=== PATIENT | female | born 1990 | race Caucasian/White ===

== ENCOUNTER 2017-06-18 17:59 | Inpatient (IN) | payer SELFPAY ==
[2017-06-18 18:38] LABS: PH,URINE 5.5 (4.5-8); URINE APPEARANCE Cloudy; URINE BILIRUBIN Negative (NEGATIVE); URINE GLUCOSE (UA) Negative (NEGATIVE); URINE KETONE Negative (NEGATIVE); URINE NITRITE Positive (NEGATIVE); URINE UROBILINOGEN 0.2 (0.2-1.0)
[2017-06-18 18:40] LABS: URINE BLOOD 3+ (NEGATIVE); URINE COLOR YELLOW; URINE LEUK ESTERASE 2+ (NEGATIVE); URINE PROTEIN 1+ (NEGATIVE)
[2017-06-18] MEDS ORDERED: SODIUM CHLORIDE 1,000 ML IV STA (18:51)
[2017-06-18] MEDS ORDERED: KETOROLAC TROMETHAMINE 30 MG/1 ML VIAL IVPUSH ONE (18:52)
--- NOTE | 2017-06-18 18:54 | PDOC ---
History of Present Illness - General History Source: Patient (The patient is a 26 year old female, with a significant past medical history of kidney stones, bladder infection, who presents to the emergency department via EMS with, sudden onset of left flank pain upon waking up this morning approx. 8 hours ago. The patient reports the left flank pain feels like a squeezing pain rated 7.5/10 and radiates around to the left side of her abdomen. The patient reports associated dizziness and one episode of nausea with emesis (non bloody, non bilious) this morning. The patient reports her LMP was approx. 2 months ago which she states is normal and denies any chance of . She denies any recent fever, chills, headache or dizziness. She denies any recent constipation or diarrhea. She denies any recent dysuria, frequency, urgency or hematuria. She denies any recent chest pain or shortness of breath. ) Exam Limitations: No Limitations - History of Present Illness Timing/Duration: 4-6 hours <Babar Gordillo - Last Filed: 06/18/17 19:05> <Jimmie Alberto - Last Filed: 06/19/17 09:42> - General Chief Complaint: Back Pain Stated Complaint: BACK PAIN Time Seen by Provider: 06/18/17 18:23 Past History <Babar Gordillo - Last Filed: 06/18/17 19:05> - Past Medical History COPD: No GI Disorders: Yes (KIDDNEY INFECTION) - Suicide/Smoking/Psychosocial Hx Smoking History: Never smoked Have you smoked in the past 12 months: No Information on smoking cessation initiated: No Hx Alcohol Use: No Drug/Substance Use Hx: No Substance Use Type: None <Jimmie Alberto - Last Filed: 06/19/17 09:42> - Past Medical History Allergies/Adverse Reactions: Allergies Allergy/AdvReac Type Severity Reaction Status Date / Time No Known Allergies Allergy Verified 06/18/17 18:21 Home Medications: Ambulatory Orders Ibuprofen 400 mg PO PRN PRN 06/18/17 Review of Systems - Review of Systems Constitutional: No: Chills, Diaphoresis, Fever, Weakness HEENTM: No: Blurred Vision, Double Vision, Difficulty Swallowing Respiratory: No: Cough, Shortness of Breath Cardiac (ROS): No: Chest Pain, Edema, Lightheadedness, Palpitations, Syncope ABD/GI: No: Abdominal Distended, Diarrhea, Nausea, Vomiting : Yes: Flank Pain (+Left flank pain. ). No: Burning, Dysuria, Frequency, Hematuria Musculoskeletal: No: Joint Pain, Muscle Pain Integumentary: No: Lesions, Rash Neurological: No: Headache, Numbness, Paresthesia, Dizziness Psychiatric: No: Anxiety, Depression Endocrine: No: Intolerance to Cold, Intolerance to Heat, Unexplained Weight Gain , Unexplained Weight Loss Hematologic/Lymphatic: No: Easy Bleeding, Easy Bruising <Babar Gordillo - Last Filed: 06/18/17 19:05> *Physical Exam - Vital Signs Last Vital Signs Temp Pulse Resp BP Pulse Ox 99.7 F H 86 17 107/60 96 06/18/17 18:00 06/18/17 18:00 06/18/17 18:00 06/18/17 18:00 06/18/17 18:00 - Physical Exam General Appearance: Yes: Appropriately Dressed. No: Apparent Distress HEENT: positive: EOMI, BERTRAND, Normal ENT Inspection, Normal Voice, Symmetrical, TMs Normal, Pharynx Normal Neck: positive: Trachea midline, Supple. negative: Tender Respiratory/Chest: positive: Lungs Clear, Normal Breath Sounds. negative: Respiratory Distress, Accessory Muscle Use, Crackles, Rales, Rhonchi, Wheezing Cardiovascular: positive: Regular Rhythm, Regular Rate, S1, S2. negative: Edema , JVD, Murmur Gastrointestinal/Abdominal: positive: Normal Bowel Sounds, Soft, Tenderness (+ LUQ tenderness. ). negative: Distended, Guarding, Rebound Musculoskeletal: positive: Normal Inspection, CVA Tenderness (L). negative: Vertebral Tenderness Extremity: positive: Normal Inspection, Normal Range of Motion. 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, Fully Oriented, Alert, Normal Mood/ Affect, Normal Response, Motor Strength 5/5 <Babar Gordillo - Last Filed: 06/18/17 19:05> - Vital Signs Last Vital Signs Temp Pulse Resp BP Pulse Ox 99.7 F H 86 17 107/60 96 06/18/17 18:00 06/18/17 18:00 06/18/17 18:00 06/18/17 18:00 06/18/17 18:00 <Jimmie Alberto - Last Filed: 06/19/17 09:42> ED Treatment Course - ADDITIONAL ORDERS Additional order review: Laboratory Results 06/18/17 18:33 Urine Color Yellow Urine Appearance Cloudy Urine pH 5.5 Ur Specific [place] 1.025 Urine Protein 1+ H Urine Glucose (UA) Negative Urine Ketones Negative Urine Blood 3+ H Urine Nitrite Positive Urine Bilirubin Negative Urine Urobilinogen 0.2 Ur Leukocyte Esterase 2+ H <Babar Gordillo - Last Filed: 06/18/17 19:05> - LABORATORY CBC & Chemistry Diagram: 06/19/17 07:10 06/19/17 07:10 - ADDITIONAL ORDERS Additional order review: Laboratory Results 06/18/17 18:33 Urine Color Yellow Urine Appearance Cloudy Urine pH 5.5 Ur Specific [place] 1.025 Urine Protein 1+ H Urine Glucose (UA) Negative Urine Ketones Negative Urine Blood 3+ H Urine Nitrite Positive Urine Bilirubin Negative Urine Urobilinogen 0.2 Ur Leukocyte Esterase 2+ H <Jimmie Alberto S - Last Filed: 06/19/17 09:42> Medical Decision Making - Medical Decision Making Endorsed to Dr Cho at shift change The working diagnosis : nephrolithyasis, pyelonephritis 06/18/17 19:02 06/19/17 09:41 <Jimmie Alberto - Last Filed: 06/19/17 09:42> *DC/Admit/Observation/Transfer - Attestations Scribe Attestion: 06/18/17 19:00 Documentation prepared by Babar Gordillo, acting as medical device engineer for Jimmie Alberto MD. <Babar Gordillo - Last Filed: 06/18/17 19:05> <Jimmie Alberto - Last Filed: 06/19/17 09:42> Diagnosis at time of Disposition: Kidney stone on left side, UTI (urinary tract infection)
[2017-06-18 19:06] LABS: URINE BACTERIA MANY /hpf (NEGATIVE); URINE WBC >100 (0-5)
[2017-06-18] MEDS ORDERED: KETOROLAC TROMETHAMINE 30 MG/1 ML VIAL ONE (19:06)
[2017-06-18 19:31] LABS: HEMOGLOBIN 12.4 GM/dl (10.7-15.3); MCH 29.9 pg (25.7-33.7); MCHC 34.5 g/dl (32.0-36.0); MEAN CELL VOLUME 86.7 fl (80-96); MEAN PLT VOLUME 9.5 fl (7.5-11.1); PLATELET COUNT 204 K/MM3 (134-434); RBC 4.15 M/mm3 (3.60-5.2); RDW 12.5 % (11.6-15.6); WHITE BLOOD COUNT 16.7 K/mm3 (4.0-10.8)
--- NOTE | 2017-06-18 20:01 | PDOC ---
*Physical Exam - Vital Signs Last Vital Signs Temp Pulse Resp BP Pulse Ox 99.7 F H 86 17 107/60 96 06/18/17 18:00 06/18/17 18:00 06/18/17 18:00 06/18/17 18:00 06/18/17 18:00 ED Treatment Course - LABORATORY CBC & Chemistry Diagram: 06/18/17 19:18 06/18/17 19:18 - ADDITIONAL ORDERS Additional order review: Laboratory Results 06/18/17 06/18/17 19:00 18:33 Urine Color Yellow Urine Appearance Cloudy Urine pH 5.5 Ur Specific [place] 1.025 Urine Protein 1+ H Urine Glucose (UA) Negative Urine Ketones Negative Urine Blood 3+ H Urine Nitrite Positive Urine Bilirubin Negative Urine Urobilinogen 0.2 Ur Leukocyte Esterase 2+ H Urine RBC 10-20 Urine WBC >100 Urine Bacteria Many Urine HCG, Qual Negative 06/18/17 19:18 RBC 4.15 MCV 86.7 MCHC 34.5 RDW 12.5 MPV 9.5 Neutrophils % No Result Required. Lymphocytes % No Result Required. - Medications Given in the ED: ED Medications Discontinued Medications Generic Name Dose Route Start Last Admin Trade Name Freq PRN Reason Stop Dose Admin Sodium Chloride 1,000 mls @ 1,000 mls/hr 06/18/17 18:51 06/18/17 19:04 Normal Saline - IV 06/18/17 19:50 1,000 mls/hr ASDIR STA Administration Ketorolac Tromethamine 30 mg 06/18/17 18:52 06/18/17 19:05 Toradol Injection - IVPUSH 06/18/17 18:53 30 mg ONCE ONE Administration Medical Decision Making - Medical Decision Making 06/18/17 21:28 Care of this patient received from Workup reveals a 4 mm calculus at the left UPJ with mild hydronephrosis. White count is elevated at 16,000 and urinalysis consistent with UTI. Clinical presentation suggests pyelonephritis with obstructing calculus. Patient states that she was admitted to the hospital in [place] last year for similar clinical presentation. Zosyn 3.375 g IV administered. Patient does not have a physician in this area; [facility] hospitalist service will be contacted for admission. Case discussed with Dr. Ray: Patient will be admitted to [facility] hospitalist service here at [facility]. *DC/Admit/Observation/Transfer Diagnosis at time of Disposition: Kidney stone on left side UTI (urinary tract infection) Qualifiers: Urinary tract infection type: acute pyelonephritis Qualified Code(s): N10 - Acute pyelonephritis - Discharge Dispostion Admit: Yes - Referrals - Patient Instructions - Post Discharge Activity
[2017-06-18 20:04] LABS: ALBUMIN 4.2 g/dl (3.5-5.0); ALK PHOS 81 U/L (32-92); ANION GAP 6 (8-16); BILIRUBIN,TOTAL 0.5 mg/dl (0.2-1.0); BLOOD UREA NITROGEN 12 mg/dl (7-18); CALCIUM 9.2 mg/dl (8.4-10.2); CHLORIDE 105 mmol/L (98-107); CO2 19 mmol/L (22-28); CREATININE 0.9 mg/dl (0.6-1.3); GLUCOSE,RANDOM 116 mg/dl (74-106); POTASSIUM 4.4 mmol/L (3.5-5.1); SGOT/AST 19 U/L (10-42); SGPT/ALT 25 U/L (10-40); SODIUM 130 mmol/L (136-145); TOT PROT 7.8 g/dl (6.4-8.3)
[2017-06-18 20:29] LABS: PLATELET ESTIMATE ADEQUATE
[2017-06-18] MEDS ORDERED: PIPERACILLIN/TAZOB 3.375 GM/50 ML PRE-DOCKED IVPB ONE (21:11)
[2017-06-18] MEDS ORDERED: PIPERACILLIN/TAZOBACTAM 3.375 GM VIAL IVPB ONE (21:22)
--- NOTE | 2017-06-18 21:48 | HP ---
CHIEF COMPLAINT: Left Flank Pain PCP: HISTORY OF PRESENT ILLNESS: This is a 26 y/o young woman with a PMHx of Renal Stones, Bladder Infection. Who presents to the ED with L-flank pain, LLQ pain and dysuria x 1-2 days. Patient reports having back pain and taking Tylenol without relief. Patient reports having subjective fevers and chills at home. She reports having dysuria that started tonight in the ED. Patient denies cough, WALTER, dizziness, CP , palpitations, N/V/D, constipation. ER course was notable for: (1) CTAP- 4mm Calculus left UPJ with mild hydronephrosis (2) WBC 16.7 (3) UA- +Nitrates, +3 Blood, 100 WBC, Recent Travel: None PAST MEDICAL HISTORY: see HPI PAST SURGICAL HISTORY: None Social History: Smoking: Never Alcohol: Seldom Drugs: None Family History: Father:Liver Ca Grandmother: DM Grandfather: Cardiac Allergies No Known Allergies Allergy (Verified 06/18/17 18:21) HOME MEDICATIONS: Home Medications Medication Instructions Recorded Ibuprofen 400 mg PO PRN PRN 06/18/17 REVIEW OF SYSTEMS CONSTITUTIONAL: fever, chills Absent: diaphoresis, generalized weakness, malaise, loss of appetite, weight change HEENT: Absent: rhinorrhea, nasal congestion, throat pain, throat swelling, difficulty swallowing, mouth swelling, ear pain, eye pain, visual changes CARDIOVASCULAR: Absent: chest pain, syncope, palpitations, irregular heart rate, lightheadedness , peripheral edema RESPIRATORY: Absent: cough, shortness of breath, dyspnea with exertion, orthopnea, wheezing, stridor, hemoptysis GASTROINTESTINAL: Absent: abdominal pain, abdominal distension, nausea, vomiting, diarrhea, constipation, melena, hematochezia GENITOURINARY: flank pain, dysuria, hematuria Absent: frequency, urgency, hesitancy, genital pain MUSCULOSKELETAL: Absent: myalgia, arthralgia, joint swelling, back pain, neck pain SKIN: Absent: rash, itching, pallor HEMATOLOGIC/IMMUNOLOGIC: Absent: easy bleeding, easy bruising, lymphadenopathy, frequent infections ENDOCRINE: Absent: unexplained weight gain, unexplained weight loss, heat intolerance, cold intolerance NEUROLOGIC: Absent: headache, focal weakness or paresthesias, dizziness, unsteady gait, seizure, mental status changes, bladder or bowel incontinence PSYCHIATRIC: Absent: anxiety, depression, suicidal or homicidal ideation, hallucinations. PHYSICAL EXAMINATION Vital Signs - 24 hr 06/18/17 18:00 Temperature 99.7 F H Pulse Rate 86 Respiratory 17 Rate Blood Pressure 107/60 O2 Sat by Pulse 96 Oximetry (%) GENERAL: Awake, alert, and fully oriented, in no acute distress. HEAD: Normal with no signs of trauma. EYES: Pupils equal, round and reactive to light, extraocular movements intact, sclera anicteric, conjunctiva clear. No lid lag. EARS, NOSE, THROAT: Ears normal, nares patent, oropharynx clear without exudates. Dry mucous membranes. NECK: Normal range of motion, supple without lymphadenopathy, JVD, or masses. LUNGS: Breath sounds equal, clear to auscultation bilaterally. No wheezes, and no crackles. No accessory muscle use. HEART: Regular rate and rhythm, normal S1 and S2 without murmur, rub or gallop. ABDOMEN: Soft, LLQ tenderness, not distended, normoactive bowel sounds, no guarding, no rebound, no masses. No hepatomegaly or splenomegaly. MUSCULOSKELETAL: Normal range of motion at all joints. No bony deformities or tenderness. + L CVA tenderness. UPPER EXTREMITIES: 2+ pulses, warm, well-perfused. No cyanosis. No clubbing. No peripheral edema. LOWER EXTREMITIES: 2+ pulses, warm, well-perfused. No calf tenderness. No peripheral edema. NEUROLOGICAL: Cranial nerves II-XII intact. Normal speech. Gait not observed. PSYCHIATRIC: Cooperative. Good eye contact. Appropriate mood and affect. SKIN: Warm, dry, normal turgor, no rashes or lesions noted, normal capillary refill. Laboratory Results - last 24 hr 06/18/17 06/18/17 06/18/17 18:33 19:00 19:18 WBC 16.7 H RBC 4.15 Hgb 12.4 Hct 36.0 MCV 86.7 MCH 29.9 MCHC 34.5 RDW 12.5 Plt Count 204 MPV 9.5 Neutrophils % No Result Required. Neutrophils % (Manual) 84.0 H Band Neutrophils % 14.0 H Lymphocytes % No Result Required. Lymphocytes % (Manual) 2.0 L Platelet Estimate Adequate Sodium Potassium Chloride Carbon Dioxide Anion Gap BUN Creatinine Creat Clearance w eGFR Random Glucose Lactic Acid Calcium Total Bilirubin AST ALT Alkaline Phosphatase Total Protein Albumin Urine Color Yellow Urine Appearance Cloudy Urine pH 5.5 Ur Specific [place] 1.025 Urine Protein 1+ H Urine Glucose (UA) Negative Urine Ketones Negative Urine Blood 3+ H Urine Nitrite Positive Urine Bilirubin Negative Urine Urobilinogen 0.2 Ur Leukocyte Esterase 2+ H Urine RBC 10-20 Urine WBC >100 Urine Bacteria Many Urine HCG, Qual Negative 06/18/17 06/18/17 19:18 19:18 WBC RBC Hgb Hct MCV MCH MCHC RDW Plt Count MPV Neutrophils % Neutrophils % (Manual) Band Neutrophils % Lymphocytes % Lymphocytes % (Manual) Platelet Estimate Sodium 130 L Potassium 4.4 Chloride 105 Carbon Dioxide 19 L Anion Gap 6 L BUN 12 Creatinine 0.9 Creat Clearance w eGFR > 60 Random Glucose 116 H Lactic Acid 1.2 Calcium 9.2 Total Bilirubin 0.5 AST 19 ALT 25 Alkaline Phosphatase 81 Total Protein 7.8 Albumin 4.2 Urine Color Urine Appearance Urine pH Ur Specific [place] Urine Protein Urine Glucose (UA) Urine Ketones Urine Blood Urine Nitrite Urine Bilirubin Urine Urobilinogen Ur Leukocyte Esterase Urine RBC Urine WBC Urine Bacteria Urine HCG, Qual ASSESSMENT/PLAN: This is a 26 y/o young woman with a PMHx of: Renal Calculi, Bladder Infections. Admitted to [facility] for Pyelonephritis, UTI. Plan: 1. : Pyelonephritis, UTI - Blood Cultures-pending - Urine Cultures-pending - UA- +nitrates, +2 leukocyte esterase, + >100WBC, +3 blood -+Leukocytosis, +Neutrophilia - Zosyn given in ED, will continue - Appreciate ID Consult - Appreciate Urology Consult - Monitor CBC, BMP - Toradol prn - IVF 2. F/E/N - NS@125ml/hr - Replete lytes prn - Clear Diet 3. Hyponatremia - Likely secondary to dehydration - NS bolus given in ED - Continue IVF - BMP in am 4. DVT Prophylaxis - OOB - SCDs Code Status: Full Code Dispo: Requires Inpatient Care Problem List - Problem (1) Pyelonephritis Code(s): N12 - TUBULO-INTERSTITIAL NEPHRITIS, NOT SPCF ACUTE OR CHRONIC (2) Kidney stone on left side Code(s): N20.0 - CALCULUS OF KIDNEY (3) UTI (urinary tract infection) Code(s): N39.0 - URINARY TRACT INFECTION, SITE NOT SPECIFIED Qualifiers: Urinary tract infection type: acute pyelonephritis Qualified Code(s): N10 - Acute pyelonephritis (4) DVT prophylaxis Code(s): [id number] - Visit type - Emergency Visit Emergency Visit: Yes ED Registration Date: 06/18/17 Care time: The patient presented to the Emergency Department on the above date and was hospitalized for further evaluation of their emergent condition. - New Patient This patient is new to me today: Yes Date on this admission: 06/18/17 - Critical Care Critical Care patient: No Hospitalist Screening - Colonoscopy Questionnaire Colonoscopy Questionnaire: Colonoscopy Questionnaire - Patient: 50 - 75 years old and never had a screening colonoscopy: No History of colon or rectal polyps, or CA: No History of IBD, Crohn's disease or UC: No History of abdominal radiation therapy as a child: No - Relative: 1 with colon or rectal CA, or polyps at age 60 or younger: No Colon or rectal CA diagnosed at age 45 or younger: No Multiple relatives with colon or rectal CA: No - Outcome: Screening Result: Negative Screen
[2017-06-18 22:43] VITALS: BMI 30.4
[2017-06-18] MEDS: KETOROLAC TROMETHAMINE 30 MG/1 ML VIAL IVPUSH PRN (22:50)
[2017-06-18] MEDS: SODIUM CHLORIDE 1,000 ML IV SCH (22:50)
[2017-06-18] MEDS ORDERED: oxyCODONE HCL 5 MG TABLET PO ONE (23:15)
[2017-06-19] MEDS ORDERED: morphine CARPU-JECT 2 MG/1 ML DISP.SYRIN IVPUSH ONE (00:35)
[2017-06-19] MEDS: ACETAMINOPHEN 325 MG TABLET (FP) PO PRN ×2 (00:43→21:26)
[2017-06-19] MEDS ORDERED: PIPERACILLIN/TAZOB 3.375 GM/50 ML PRE-DOCKED IVPB ONE (06:00)
[2017-06-19 08:06] LABS: BASO % 0.1 % (0-2.0); EOS % 0.2 % (0-4.5); HEMATOCRIT 33.7 % (32.4-45.2); HEMOGLOBIN 11.9 GM/dl (10.7-15.3); MCH 30.8 pg (25.7-33.7); MCHC 35.3 g/dl (32.0-36.0); MEAN CELL VOLUME 87.2 fl (80-96); MEAN PLT VOLUME 10.2 fl (7.5-11.1); MONO % 4.9 % (3.8-10.2); NEUT % 89.8 % (42.8-82.8); PLATELET COUNT 206 K/MM3 (134-434); RBC 3.86 M/mm3 (3.60-5.2); RDW 12.5 % (11.6-15.6); WHITE BLOOD COUNT 16.4 K/mm3 (4.0-10.8)
[2017-06-19 08:12] LABS: ANION GAP 5 (8-16); BLOOD UREA NITROGEN 9 mg/dl (7-18); CALCIUM 8.2 mg/dl (8.4-10.2); CHLORIDE 109 mmol/L (98-107); CO2 20 mmol/L (22-28); CREATININE 0.8 mg/dl (0.6-1.3); GLUCOSE,RANDOM 106 mg/dl (74-106); POTASSIUM 3.9 mmol/L (3.5-5.1); SODIUM 134 mmol/L (136-145)
[2017-06-19] MEDS ORDERED: ONDANSETRON 4 MG TABLET PO PRN (10:07)
--- NOTE | 2017-06-19 10:08 | PN ---
Physical Exam: SUBJECTIVE: Patient seen and examined, reports left flank pain and nausea. OBJECTIVE: Patient is a 26 y/o female with a past medical history of pylonephritis and renal calculi, patient was admitted from the emergency department for emergent condition. Vital Signs Period Temp Pulse Resp BP Sys/Aguilar Pulse Ox Last 24 Hr 98.5 F-99.9 F 86-114 17-19 105-114/57-64 96-100 GENERAL: The patient is awake, alert, and fully oriented, in no acute distress. HEAD: Normal with no signs of trauma. EYES: PERRL, extraocular movements intact, sclera anicteric, conjunctiva clear. No ptosis. ENT: Ears normal, nares patent, oropharynx clear without exudates, moist mucous membranes. NECK: Trachea midline, full range of motion, supple. LUNGS: Breath sounds equal, clear to auscultation bilaterally, no wheezes, no crackles, no accessory muscle use. HEART: Regular rate and rhythm, S1, S2 without murmur, rub or gallop. ABDOMEN: left cva tenderness, Soft, nontender, nondistended, normoactive bowel sounds, no guarding, no rebound, no hepatosplenomegaly, no masses. EXTREMITIES: 2+ pulses, warm, well-perfused, no edema. NEUROLOGICAL: Cranial nerves II through XII grossly intact. Normal speech, gait not observed. PSYCH: Normal mood, normal affect. SKIN: Warm, dry, normal turgor, no rashes or lesions noted Laboratory Results - last 24 hr 06/18/06/18/17 06/18/17 18:33 19:00 19:18 WBC 16.7 H RBC 4.15 Hgb 12.4 Hct 36.0 MCV 86.7 MCH 29.9 MCHC 34.5 RDW 12.5 Plt Count 204 MPV 9.5 Neutrophils % No Result Required. Neutrophils % (Manual) 84.0 H Band Neutrophils % 14.0 H Lymphocytes % No Result Required. Lymphocytes % (Manual) 2.0 L Monocytes % Eosinophils % Basophils % Platelet Estimate Adequate Sodium Potassium Chloride Carbon Dioxide Anion Gap BUN Creatinine Creat Clearance w eGFR Random Glucose Lactic Acid Calcium Total Bilirubin AST ALT Alkaline Phosphatase Total Protein Albumin Urine Color Yellow Urine Appearance Cloudy Urine pH 5.5 Ur Specific [place] 1.025 Urine Protein 1+ H Urine Glucose (UA) Negative Urine Ketones Negative Urine Blood 3+ H Urine Nitrite Positive Urine Bilirubin Negative Urine Urobilinogen 0.2 Ur Leukocyte Esterase 2+ H Urine RBC 10-20 Urine WBC >100 Urine Bacteria Many Urine HCG, Qual Negative 06/18/17 06/18/17 06/19/17 19:18 19:18 07:10 WBC 16.4 H RBC 3.86 Hgb 11.9 Hct 33.7 MCV 87.2 MCH 30.8 MCHC 35.3 RDW 12.5 Plt Count 206 MPV 10.2 Neutrophils % 89.8 H Neutrophils % (Manual) Band Neutrophils % Lymphocytes % 5.0 L Lymphocytes % (Manual) Monocytes % 4.9 Eosinophils % 0.2 Basophils % 0.1 Platelet Estimate Sodium 130 L Potassium 4.4 Chloride 105 Carbon Dioxide 19 L Anion Gap 6 L BUN 12 Creatinine 0.9 Creat Clearance w eGFR > 60 Random Glucose 116 H Lactic Acid 1.2 Calcium 9.2 Total Bilirubin 0.5 AST 19 ALT 25 Alkaline Phosphatase 81 Total Protein 7.8 Albumin 4.2 Urine Color Urine Appearance Urine pH Ur Specific [place] Urine Protein Urine Glucose (UA) Urine Ketones Urine Blood Urine Nitrite Urine Bilirubin Urine Urobilinogen Ur Leukocyte Esterase Urine RBC Urine WBC Urine Bacteria Urine HCG, Qual 06/19/17 07:10 WBC RBC Hgb Hct MCV MCH MCHC RDW Plt Count MPV Neutrophils % Neutrophils % (Manual) Band Neutrophils % Lymphocytes % Lymphocytes % (Manual) Monocytes % Eosinophils % Basophils % Platelet Estimate Sodium 134 L Potassium 3.9 Chloride 109 H Carbon Dioxide 20 L Anion Gap 5 L BUN 9 D Creatinine 0.8 Creat Clearance w eGFR Random Glucose 106 Lactic Acid Calcium 8.2 L Total Bilirubin AST ALT Alkaline Phosphatase Total Protein Albumin Urine Color Urine Appearance Urine pH Ur Specific [place] Urine Protein Urine Glucose (UA) Urine Ketones Urine Blood Urine Nitrite Urine Bilirubin Urine Urobilinogen Ur Leukocyte Esterase Urine RBC Urine WBC Urine Bacteria Urine HCG, Qual Active Medications Generic Name Dose Route Start Last Admin Trade Name Freq PRN Reason Stop Dose Admin Acetaminophen 650 mg 06/19/17 00:35 06/19/17 00:43 Tylenol - PO 650 mg Q6H PRN Administration PAIN OR FEVER Sodium Chloride 1,000 mls @ 125 mls/hr 06/18/17 22:00 06/18/17 22:50 Normal Saline - IV 125 mls/hr ASDIR ROSANNE Administration Ketorolac Tromethamine 30 mg 06/19/17 01:00 Toradol Injection - IVPUSH 06/24/17 00:59 Q6H PRN PAIN LEVEL 6-10 Ondansetron HCl 4 mg 06/19/17 09:51 Zofran Injection IVPB 06/19/17 09:52 ONCE ONE Piperacillin/Tazobactam/Dextrose 3.375 gm 06/19/17 02:00 Zosyn 3.375gm Ivpb (Premix) IVPB Q8H-IV ROSANNE Microbiology 06/18/17 19:18 Blood - Peripheral Venous Blood Culture - Preliminary Pending Organism IMAGING CT of abd/pelvis: 4mm obstructing calculus noted in the left uvj, mild hydronephrosis ASSESSMENT/PLAN: 1. : obstructive uropathy - case discussed with Dr Falcon, urology, plan for OR today for urethral stent placement - pt to made npo-->ivf - prn pain medication and anti-emetics pyelonephritis - pending urine culture, continue zosyn appreciate ID, (Dr Hurst) input - leukocytosis noted, low grade temp 2. ID sepsis bacteremia - prelim culture +, likely secondary from source, continue zosyn, appreciate ID input f/e/n hyponatremia secondary to hyponatremia, resolving - ns @125ml/hr-->npo - replete lytes prn DVT Prophylaxis - OOB - SCDs Code Status: Full Code Dispo: Requires Inpatient Care Visit type - Emergency Visit Emergency Visit: Yes ED Registration Date: 06/18/17 Care time: The patient presented to the Emergency Department on the above date and was hospitalized for further evaluation of their emergent condition. - New Patient This patient is new to me today: No - Critical Care Critical Care patient: No - Discharge Referral Referred to [facility] No
[2017-06-19] MEDS: KETOROLAC TROMETHAMINE 30 MG/1 ML VIAL IVPUSH PRN ×2 (10:26→18:07)
[2017-06-19] MEDS ORDERED: ONDANSETRON 4 MG/2 ML VIAL IVPUSH ONE (10:30)
--- NOTE | 2017-06-19 11:04 | PN ---
Progress Note (short form) - Note Progress Note: ID Consult dictated Gram Negative bacteremia/ sepsis secondary to L nephrolithiasis Obstructive uropathy/ hydronephrosis IVF hydration Urology evaluation Empiric zosyn
--- NOTE | 2017-06-19 11:06 | CON.GU ---
Consult Consult Specialty:: Referred by:: Medicine Reason for Consultation:: septic, obstructing stone - History of Present Illness Chief Complaint: septic, obstructing stone History of Present Illness: called this morning regarding this 26 year old female with an obstructing 4mm stone with fevers, elevated WBC and heart rate and positive blood cultures. She has a history of stones in the past which have not required surgery. - History Source History Provided By: Patient, Medical Record Limitations to Obtaining History: No Limitations - Past Medical History Renal/: Yes: Renal Calculi ...LMP: 06/03/17 ...LMP Comment: 1/2 MONTH AGO ...: No - Alcohol/Substance Use Hx Alcohol Use: No - Smoking History Smoking history: Never smoked Have you smoked in the past 12 months: No Home Medications - Allergies Allergies/Adverse Reactions: Allergies Allergy/AdvReac Type Severity Reaction Status Date / Time No Known Allergies Allergy Verified 06/18/17 18:21 - Home Medications Home Medications: Ambulatory Orders Ibuprofen 400 mg PO PRN PRN 06/18/17 Review of Systems - Review of Systems Constitutional: reports: Fever Genitourinary: reports: Flank Pain Physical Exam- Vital Signs: Vital Signs Temperature 99.6 F 06/19/17 09:00 Pulse Rate 111 H 06/19/17 09:00 Respiratory Rate 17 06/19/17 09:00 Blood Pressure 114/64 06/19/17 09:00 O2 Sat by Pulse Oximetry (%) 100 06/19/17 09:00 Constitutional: Yes: Well Nourished, No Distress, Calm Gastrointestinal: Yes: Soft Renal/: No: Bladder Distention, CVA Tenderness - Left, CVA Tenderness - Right , Kinsey Present, Hematuria Labs: CBC, BMP 06/19/17 07:10 06/19/17 07:10 Imaging - Results Cat Scan: Report Reviewed Assessment/Plan obstructing left ureteral calculus in the setting of urosepsis. Immediate stent placement recommended. OR alerted.
[2017-06-19] MEDS: FAMOTIDINE 20 MG TABLET PO SCH ×2 (11:11→21:23)
[2017-06-19] MEDS ORDERED: ETOMIDATE 20 MG/10 ML AMPUL IVPUSH ONE (12:16)
[2017-06-19] MEDS ORDERED: LIDOCAINE HCL/PF 2% SDV 5ML VIAL ONE (12:17)
[2017-06-19] MEDS ORDERED: SUCCINYLCHOLINE CHLORIDE 200 MG/10 ML VIAL ONE (12:17)
[2017-06-19] MEDS ORDERED: LIDOCAINE HCL 2% JELLY 10 ML CARTRIDGE ONE (12:22)
[2017-06-19] MEDS ORDERED: ROCURONIUM BROMIDE 50 MG/5 ML VIAL ONE (12:42)
[2017-06-19] MEDS ORDERED: LIDOCAINE HCL 2% JELLY 10 ML CARTRIDGE TP ONE (12:43)
--- NOTE | 2017-06-19 12:49 | CONS ---
DATE OF CONSULTATION: HISTORY: The patient is a 26-year-old female with a history of nephrolithiasis in the past now evaluated for recurrent nephrolithiasis and positive blood cultures. She presented with 1-day history of left-sided flank pain associated nausea, vomiting, and dizziness as well as dysuria. She was evaluated in the hospital where her CAT scan showed a 4-mm stone at the left UV junction with obstruction and resultant hydronephrosis. She was also noted to have a white blood cell count of 16,000 and low-grade fever. Blood cultures are now positive for gram-negative rods. She was empirically treated with Zosyn. PAST MEDICAL HISTORY: As noted above. ALLERGIES: No known allergies. LABORATORY DATA: White count 16.4, hematocrit 33.7, platelet count 206, BUN 9, creatinine 0.8. Urinalysis greater than 100 white cells. Blood cultures gram-negative rods. PHYSICAL EXAMINATION: General: She is in moderate distress secondary to left flank pain. Vital Signs: Temperature 99.6, T-max 99.9, blood pressure 114/64, pulse 111, respirations 18 per minute. HEENT: Sclerae anicteric. Heart: Tachycardic. S1, S2. Lungs: Clear. Abdomen: Soft. There is left CVA tenderness to palpation. Extremities: Negative for edema. IMPRESSION: 1. Gram-negative bacteremia/sepsis secondary to genitourinary focus. 2. Left nephrolithiasis. 3. Obstructive uropathy with hydronephrosis. PLAN: Continue IV fluid hydration. Urology evaluation. Empiric Zosyn pending culture results. Thank you for the kind referral. ALBERT CHAPIN M.D. [id number]
[2017-06-19] MEDS ORDERED: PROPOFOL 20 ML ONE (13:01)
[2017-06-19] MEDS ORDERED: PHENYLEPHRINE HCL 10 MG/1 ML SINGLE DOSE VIAL ONE (13:06)
--- NOTE | 2017-06-19 13:07 | OP ---
Operative Note - Note: Operative Date: 06/19/17 Pre-Operative Diagnosis: left ureteral calculus. urosepsis Operation: cystoscopy, left ureteral stent placement Findings: left ureteral stone Surgeon: Porter Pollack Anesthesia: General Drains & Tubes with Location: 22x6 JJ ureteral stent , left
[2017-06-19] MEDS ORDERED: ONDANSETRON 4 MG/2 ML VIAL ONE (13:08)
[2017-06-19] MEDS ORDERED: ONDANSETRON 4 MG/2 ML VIAL IVPUSH PRN (13:33)
[2017-06-19] MEDS ORDERED: LACTATED RINGERS SOLUTION 1,000 ML IV SCH (13:45)
[2017-06-19] MEDS: PIPERACILLIN/TAZOB 3.375 GM 3.375 GM/50 ML BAG IVPB SCH ×2 (14:34→22:00)
[2017-06-19] MEDS ORDERED: PIPERACIL/TAZOB 3.375 GM 3.375 GM/50 ML PREMIX IVPB SCH (18:00)
[2017-06-19] MEDS: SODIUM CHLORIDE 1,000 ML IV SCH (21:23)
[2017-06-19] MEDS: oxyCODONE HCL 5 MG TABLET PO PRN (21:26)
[2017-06-20] MEDS: oxyCODONE HCL 5 MG TABLET PO PRN ×2 (06:13→15:03)
[2017-06-20] MEDS: ACETAMINOPHEN 325 MG TABLET (FP) PO PRN ×2 (06:14→18:03)
[2017-06-20] MEDS: PIPERACILLIN/TAZOB 3.375 GM 3.375 GM/50 ML BAG IVPB SCH ×3 (06:15→23:29)
[2017-06-20] MEDS ORDERED: SODIUM CHLORIDE 1,000 ML IV SCH (07:35)
[2017-06-20 08:56] LABS: BASO % 0.4 % (0-2.0); EOS % 0.2 % (0-4.5); HEMATOCRIT 30.5 % (32.4-45.2); HEMOGLOBIN 10.4 GM/dl (10.7-15.3); LYMPH % 7.3 % (8-40); MCH 29.7 pg (25.7-33.7); MCHC 34.2 g/dl (32.0-36.0); MEAN CELL VOLUME 86.6 fl (80-96); MONO % 6.5 % (3.8-10.2); NEUT % 85.6 % (42.8-82.8); PLATELET COUNT 198 K/MM3 (134-434); RBC 3.52 M/mm3 (3.60-5.2); RDW 12.6 % (11.6-15.6); WHITE BLOOD COUNT 13.2 K/mm3 (4.0-10.8)
[2017-06-20] MEDS: KETOROLAC TROMETHAMINE 30 MG/1 ML VIAL IVPUSH PRN ×2 (10:02→20:16)
[2017-06-20] MEDS: FAMOTIDINE 20 MG TABLET PO SCH ×2 (10:03→21:06)
--- NOTE | 2017-06-20 11:00 | PN ---
Progress Note, Physician History of Present Illness: S/P cysto/ stent C/O L flank discomfort No c/o dysuria/ hematuria No c/o fever/ chills BC, Urine c/s LF - Current Medication List Current Medications: Active Medications Acetaminophen (Tylenol -) 650 mg PO Q6H PRN PRN Reason: PAIN OR FEVER Last Admin: 06/20/17 06:14 Dose: 650 mg Famotidine (Pepcid -) 20 mg PO BID [facility] Last Admin: 06/20/17 10:03 Dose: 20 mg Fentanyl (Sublimaze Injection -) 25 mcg IVPUSH [id number] PRN PRN Reason: PAIN-PACU ORDER X 4 DOSES ONLY Piperacillin Sod/Tazobactam Sod (Zosyn 3.375gm Ivpb (Pre-Docked)) 3.375 gm in 50 mls @ 100 mls/hr IVPB Q8H [facility] PRN Reason: Protocol Last Admin: 06/20/17 06:15 Dose: 100 mls/hr Sodium Chloride (Normal Saline -) 1,000 mls @ 75 mls/hr IV ASDIR [facility] Last Admin: 06/20/17 10:03 Dose: 75 mls/hr Ketorolac Tromethamine (Toradol Injection -) 30 mg IVPUSH Q6H PRN PRN Reason: PAIN LEVEL 6-10 Stop: 06/24/17 00:59 Last Admin: 06/20/17 10:02 Dose: 30 mg Ondansetron HCl (Zofran -) 4 mg PO TID PRN PRN Reason: NAUSEA AND/OR VOMITING Ondansetron HCl (Zofran Injection) 4 mg IVPUSH Q6H PRN PRN Reason: NAUSEA AND/OR VOMITING Oxycodone HCl (Roxicodone -) 5 mg PO Q6H PRN PRN Reason: PAIN LEVEL 7 - 10 Last Admin: 06/20/17 06:13 Dose: 5 mg - Objective Vital Signs: Vital Signs Temperature 98.2 F 06/20/17 06:59 Pulse Rate 92 H 06/20/17 06:59 Respiratory Rate 19 06/20/17 06:59 Blood Pressure 97/62 06/20/17 06:59 O2 Sat by Pulse Oximetry (%) 96 06/19/17 21:00 Constitutional: Yes: No Distress Eyes: Yes: Conjunctiva Clear Cardiovascular: Yes: Regular Rate and Rhythm, S1, S2 Respiratory: Yes: CTA Bilaterally Gastrointestinal: Yes: Normal Bowel Sounds, Soft Genitourinary: Yes: CVA Tenderness - Left Edema: No Labs: CBC, BMP 06/20/17 08:00 Assessment/Plan Gram Negative bacteremia/ sepsis secondary to source Nephrolithiasis/ obstructive uropathy s/p cysto/ stent Await culture results Continue empiric zosyn
--- NOTE | 2017-06-20 16:30 | PN ---
Progress Note (short form) - Note Progress Note: afebrile today. abd soft. hemodynamically stable A/P- S/P ureteral stent for obstructing and infected stone. positive urine and blood cultures, awaiting sensitivities rodent exterminator abx therapy as per ID recommendations
--- NOTE | 2017-06-20 17:07 | PN ---
Physical Exam: SUBJECTIVE: Patient seen and examined, reports decreased appetite, tolerating only small sips of water, feels nauseaus, denies any tactile fevers. OBJECTIVE: Patient is a 26 y/o female with a past medical history of pylonephritis and renal calculi, patient was admitted from the emergency department for sepsis and obstructive uropathy Vital Signs Period Temp Pulse Resp BP Sys/Aguilar Pulse Ox Last 24 Hr 98.2 F-99.0 F 92-107 16-19 97-106/62-71 96-96 GENERAL: The patient is awake, alert, and fully oriented, in no acute distress. HEAD: Normal with no signs of trauma. EYES: PERRL, extraocular movements intact, sclera anicteric, conjunctiva clear. No ptosis. ENT: Ears normal, nares patent, oropharynx clear without exudates, moist mucous membranes. NECK: Trachea midline, full range of motion, supple. LUNGS: Breath sounds equal, clear to auscultation bilaterally, no wheezes, no crackles, no accessory muscle use. HEART: Regular rate and rhythm, S1, S2 without murmur, rub or gallop. ABDOMEN: Soft, nontender, nondistended, normoactive bowel sounds, no guarding, no rebound, no hepatosplenomegaly, no masses, no cva tenderness EXTREMITIES: 2+ pulses, warm, well-perfused, no edema. NEUROLOGICAL: Cranial nerves II through XII grossly intact. Normal speech, gait not observed. PSYCH: Normal mood, normal affect. SKIN: Warm, dry, normal turgor, no rashes or lesions noted Laboratory Results - last 24 hr 06/20/17 08:00 WBC 13.2 H RBC 3.52 L Hgb 10.4 L D Hct 30.5 L MCV 86.6 MCH 29.7 MCHC 34.2 RDW 12.6 Plt Count 198 MPV 10.0 Neutrophils % 85.6 H Lymphocytes % 7.3 L Monocytes % 6.5 Eosinophils % 0.2 Basophils % 0.4 Active Medications Generic Name Dose Route Start Last Admin Trade Name Freq PRN Reason Stop Dose Admin Acetaminophen 650 mg 06/19/17 00:35 06/20/17 06:14 Tylenol - PO 650 mg Q6H PRN Administration PAIN OR FEVER Famotidine 20 mg 06/19/17 11:30 02/23/18 10:03 Pepcid - PO 20 mg BID [facility] Administration Fentanyl 25 mcg 06/19/17 13:33 Sublimaze Injection - IVPUSH [id number] PRN PAIN-PACU ORDER X 4 DOSES ONLY Piperacillin Sod/Tazobactam Sod 3.375 gm in 50 mls @ 100 mls/hr 06/19/17 15: 00 06/20/17 15:03 Zosyn 3.375gm Ivpb (Pre-Docked) IVPB 100 mls/hr Q8H [facility] Administration Protocol Sodium Chloride 1,000 mls @ 75 mls/hr 06/20/17 07:35 06/20/17 10:03 Normal Saline - IV 75 mls/hr ASDIR [facility] Administration Ketorolac Tromethamine 30 mg 06/19/17 01:00 06/20/17 10:02 Toradol Injection - IVPUSH 06/24/17 00:59 30 mg Q6H PRN Administration PAIN LEVEL 6-10 Ondansetron HCl 4 mg 06/19/17 10:07 Zofran - PO TID PRN NAUSEA AND/OR VOMITING Ondansetron HCl 4 mg 06/19/17 13:33 Zofran Injection IVPUSH Q6H PRN NAUSEA AND/OR VOMITING Oxycodone HCl 5 mg 06/19/17 14:31 06/20/17 15:03 Roxicodone - PO 5 mg Q6H PRN Administration PAIN LEVEL 7 - 10 Microbiology 06/18/17 18:33 Urine - Urine Clean Catch Urine Culture - Preliminary Lactose Fermenting Neg Bacilli 06/18/17 19:18 Blood - Peripheral Venous Blood Culture - Preliminary Lactose Fermenting Neg Bacilli 06/18/17 19:18 Blood - Peripheral Venous Blood Culture - Preliminary Lactose Fermenting Neg Bacilli IMAGING CT of abd/pelvis: 4mm obstructing calculus noted in the left uvj, mild hydronephrosis ASSESSMENT/PLAN: 1. : obstructive uropathy, s/p left urethral stent, POD #1 - Dr Falcon consulted and following pyelonephritis - urine culture, prelim + continue zosyn (06/18-) - prn pain medication and antimetics, continue ivf - ID, Dr Hurst consulted and following 2. ID sepsis bacteremia - prelim culture +, likely secondary from source, continue zosyn, leukocytosis downtrending, pt afebrile - ID, Dr Hurst consulted and following f/e/n hyponatremia secondary to hyponatremia, resolving - ns @75ml/hr - replete lytes prn DVT Prophylaxis - OOB - SCDs Code Status: Full Code Dispo: Requires Inpatient Care Visit type - Emergency Visit Emergency Visit: Yes ED Registration Date: 06/18/17 Care time: The patient presented to the Emergency Department on the above date and was hospitalized for further evaluation of their emergent condition. - New Patient This patient is new to me today: No - Critical Care Critical Care patient: No - Discharge Referral Referred to [facility] No
[2017-06-20 17:13] LABS: ALBUMIN 2.7 g/dl (3.5-5.0); ALK PHOS 76 U/L (32-92); ANION GAP 4 (8-16); BILIRUBIN,TOTAL 1.4 mg/dl (0.2-1.0); BLOOD UREA NITROGEN 6 mg/dl (7-18); CALCIUM 7.8 mg/dl (8.4-10.2); CHLORIDE 109 mmol/L (98-107); CO2 19 mmol/L (22-28); CREATININE 0.8 mg/dl (0.6-1.3); GLUCOSE,RANDOM 92 mg/dl (74-106); MAGNESIUM 1.7 mg/dL (1.8-2.4); PHOSPHOROUS 2.5 mg/dl (2.5-4.6); POTASSIUM 3.3 mmol/L (3.5-5.1); SGOT/AST 16 U/L (10-42); SGPT/ALT 19 U/L (10-40); SODIUM 132 mmol/L (136-145); TOT PROT 5.7 g/dl (6.4-8.3)
[2017-06-20] MEDS ORDERED: POTASSIUM CHLORIDE TABS 20 MEQ TABLET.ER (FP) PO ONE (17:30)
[2017-06-20] MEDS ORDERED: MAGNESIUM SULFATE IN WATER 2 GM/50 ML IVPB IVPB ONE (17:30)
[2017-06-20] MEDS: D5-NS + 20 MEQ KCL - 20 MEQ/1,000 ML INFUS.BAG IV SCH (18:05)
[2017-06-21] MEDS: KETOROLAC TROMETHAMINE 30 MG/1 ML VIAL IVPUSH PRN (01:44)
[2017-06-21] MEDS: ACETAMINOPHEN 325 MG TABLET (FP) PO PRN (05:41)
[2017-06-21] MEDS: oxyCODONE HCL 5 MG TABLET PO PRN ×3 (05:41→22:17)
[2017-06-21] MEDS: PIPERACILLIN/TAZOB 3.375 GM 3.375 GM/50 ML BAG IVPB SCH ×3 (06:30→22:48)
[2017-06-21 08:35] LABS: ALBUMIN 2.7 g/dl (3.5-5.0); ALK PHOS 87 U/L (32-92); ANION GAP 4 (8-16); BILIRUBIN,TOTAL 0.7 mg/dl (0.2-1.0); BLOOD UREA NITROGEN 8 mg/dl (7-18); CHLORIDE 110 mmol/L (98-107); CO2 20 mmol/L (22-28); CREATININE 0.7 mg/dl (0.6-1.3); GLUCOSE,RANDOM 94 mg/dl (74-106); MAGNESIUM 1.9 mg/dL (1.8-2.4); PHOSPHOROUS 2.3 mg/dl (2.5-4.6); POTASSIUM 3.5 mmol/L (3.5-5.1); SGOT/AST 12 U/L (10-42); SGPT/ALT 18 U/L (10-40); SODIUM 134 mmol/L (136-145)
[2017-06-21 08:37] LABS: HEMATOCRIT 30.1 % (32.4-45.2); HEMOGLOBIN 10.4 GM/dl (10.7-15.3); MCH 30.4 pg (25.7-33.7); MCHC 34.4 g/dl (32.0-36.0); MEAN CELL VOLUME 88.4 fl (80-96); MEAN PLT VOLUME 10.2 fl (7.5-11.1); PLATELET COUNT 226 K/MM3 (134-434); RBC 3.41 M/mm3 (3.60-5.2); RDW 12.1 % (11.6-15.6); WHITE BLOOD COUNT 20.4 K/mm3 (4.0-10.8)
[2017-06-21 08:46] LABS: ADD RBC MORPHOLOGY YES
--- NOTE | 2017-06-21 08:51 | PN ---
Progress Note, Physician History of Present Illness: S/P cysto/ stent C/O L flank discomfort, improved No c/o dysuria/ hematuria No c/o fever/ chills BC, Urine c/s LF final identification pending - Current Medication List Current Medications: Active Medications Acetaminophen (Tylenol -) 650 mg PO Q6H PRN PRN Reason: PAIN OR FEVER Last Admin: 06/21/17 05:41 Dose: 650 mg Famotidine (Pepcid -) 20 mg PO BID [facility] Last Admin: 06/20/17 21:06 Dose: 20 mg Fentanyl (Sublimaze Injection -) 25 mcg IVPUSH [id number] PRN PRN Reason: PAIN-PACU ORDER X 4 DOSES ONLY Piperacillin Sod/Tazobactam Sod (Zosyn 3.375gm Ivpb (Pre-Docked)) 3.375 gm in 50 mls @ 100 mls/hr IVPB Q8H [facility] PRN Reason: Protocol Last Admin: 06/21/17 06:30 Dose: 100 mls/hr Dextrose/Sodium Chloride (Dextrose 5%-Normal Saline+20 Meq Kcl -) 20 meq in 1, 000 mls @ 75 mls/hr IV ASDIR [facility] Last Admin: 06/20/17 18:05 Dose: 75 mls/hr Ketorolac Tromethamine (Toradol Injection -) 30 mg IVPUSH Q6H PRN PRN Reason: PAIN LEVEL 6-10 Stop: 06/24/17 00:59 Last Admin: 06/21/17 01:44 Dose: 30 mg Ondansetron HCl (Zofran -) 4 mg PO TID PRN PRN Reason: NAUSEA AND/OR VOMITING Ondansetron HCl (Zofran Injection) 4 mg IVPUSH Q6H PRN PRN Reason: NAUSEA AND/OR VOMITING Oxycodone HCl (Roxicodone -) 5 mg PO Q6H PRN PRN Reason: PAIN LEVEL 7 - 10 Last Admin: 06/21/17 05:41 Dose: 5 mg - Objective Vital Signs: Vital Signs Temperature 98.2 F 06/21/17 02:00 Pulse Rate 106 H 06/21/17 02:00 Respiratory Rate 19 06/21/17 02:00 Blood Pressure 111/65 06/21/17 02:00 O2 Sat by Pulse Oximetry (%) 98 06/20/17 20:00 Constitutional: Yes: No Distress Eyes: Yes: Conjunctiva Clear Cardiovascular: Yes: Regular Rate and Rhythm, S1, S2 Respiratory: Yes: CTA Bilaterally Gastrointestinal: Yes: Normal Bowel Sounds, Soft. No: Tenderness Genitourinary: Yes: CVA Tenderness - Left Edema: No Labs: CBC, BMP 06/20/17 08:00 Assessment/Plan Gram Negative bacteremia/ sepsis secondary to source Nephrolithiasis/ obstructive uropathy s/p cysto/ stent Await final culture results Repeat WBC Continue empiric zosyn Switch to po antibiotic based on identification/ susceptibilities
[2017-06-21 09:23] LABS: PLATELET ESTIMATE ADEQUATE
[2017-06-21] MEDS: FAMOTIDINE 20 MG TABLET PO SCH ×2 (09:52→22:10)
--- NOTE | 2017-06-21 16:41 | PN ---
Physical Exam: SUBJECTIVE: Patient seen and examined. Some blood in urine, feels pressure in left kidney on urination OBJECTIVE: Vital Signs Period Temp Pulse Resp BP Sys/Aguilar Pulse Ox Last 24 Hr 98.0 F-98.5 F 96-106 16-19 111-116/65-76 95-98 GENERAL: The patient is awake, alert, and fully oriented, in no acute distress. LUNGS: Breath sounds equal, clear to auscultation bilaterally, no wheezes, no crackles, no accessory muscle use. HEART: Regular rate and rhythm, S1, S2 without murmur, rub or gallop. ABDOMEN: Soft, nontender, nondistended, normoactive bowel sounds; mild left CVA tenderness EXTREMITIES: 2+ pulses, warm, well-perfused, no edema. NEUROLOGICAL: Cranial nerves II through XII grossly intact. Normal speech, gait not observed. Laboratory Results - last 24 hr 06/20/17 06/20/17 06/20/17 07:40 08:00 08:00 WBC 20.4 H 13.2 H D RBC 3.41 L 3.52 L Hgb 10.4 L D 10.4 L Hct 30.1 L 30.5 L MCV 88.4 86.6 MCH 30.4 29.7 MCHC 34.4 34.2 RDW 12.1 12.6 Plt Count 226 198 MPV 10.2 10.0 Neutrophils % No Result Required. 85.6 H Neutrophils % (Manual) 76.0 Lymphocytes % No Result Required. 7.3 L Lymphocytes % (Manual) 14.0 Monocytes % 6.5 Monocytes % (Manual) 10 Eosinophils % 0.2 Basophils % 0.4 Platelet Estimate Adequate Platelet Comment Few large plts Sodium 132 L Potassium 3.3 L Chloride 109 H Carbon Dioxide 19 L Anion Gap 4 L BUN 6 L D Creatinine 0.8 Creat Clearance w eGFR > 60 Random Glucose 92 Calcium 7.8 L Phosphorus 2.5 Magnesium 1.7 L Total Bilirubin 1.4 H D AST 16 ALT 19 D Alkaline Phosphatase 76 Total Protein 5.7 L D Albumin 2.7 L D 06/21/17 07:40 WBC RBC Hgb Hct MCV MCH MCHC RDW Plt Count MPV Neutrophils % Neutrophils % (Manual) Lymphocytes % Lymphocytes % (Manual) Monocytes % Monocytes % (Manual) Eosinophils % Basophils % Platelet Estimate Platelet Comment Sodium 134 L Potassium 3.5 Chloride 110 H Carbon Dioxide 20 L Anion Gap 4 L BUN 8 D Creatinine 0.7 Creat Clearance w eGFR > 60 Random Glucose 94 Calcium 8.0 L Phosphorus 2.3 L Magnesium 1.9 Total Bilirubin 0.7 D AST 12 D ALT 18 Alkaline Phosphatase 87 Total Protein 6.0 L Albumin 2.7 L ASSESSMENT/PLAN 26 year-old female with a PMH significant for kidney stones and UTIs. Admitted for sepsis secondary to pyelonephritis and obstructing left UPJ stone with hydronephrosis. Sepsis secondary to pyelonephritis E. coli UTI --afebrile, WBC trending down 20.4k-->13.2k --continue Zosyn (day #3) --switch to PO when sensitivities back Obstructing left ureteral stone Hematuria --s/p cystoscopy and left ureteral stent placement 06/19 --h/h stable FEN Fluids: D5NS+20K @ 75mL/hr Electrolytes: replete as indicated Nutrition: regular diet DVT prophylaxis: lovenox Dispo: continues to require inpatient care. Full code. Visit type - Emergency Visit Emergency Visit: Yes ED Registration Date: 06/18/17 Care time: The patient presented to the Emergency Department on the above date and was hospitalized for further evaluation of their emergent condition. - New Patient This patient is new to me today: Yes Date on this admission: 06/21/17 - Critical Care Critical Care patient: No
[2017-06-21] MEDS: ENOXAPARIN NA (PORCINE) 40 MG/0.4 ML DISP.SYRIN SQ SCH (17:40)
[2017-06-21] MEDS: D5-NS + 20 MEQ KCL - 20 MEQ/1,000 ML INFUS.BAG IV SCH (22:53)
[2017-06-22 06:15] VITALS: BP 107/61; PULSE 89; TEMP 99.1
[2017-06-22] MEDS: PIPERACILLIN/TAZOB 3.375 GM 3.375 GM/50 ML BAG IVPB SCH (06:23)
[2017-06-22] MEDS: ACETAMINOPHEN 325 MG TABLET (FP) PO PRN (06:35)
[2017-06-22 08:30] LABS: HEMATOCRIT 28.1 % (32.4-45.2); HEMOGLOBIN 9.7 GM/dl (10.7-15.3); MCH 30.2 pg (25.7-33.7); MCHC 34.5 g/dl (32.0-36.0); MEAN CELL VOLUME 87.5 fl (80-96); MEAN PLT VOLUME 9.3 fl (7.5-11.1); PLATELET COUNT 269 K/MM3 (134-434); RBC 3.21 M/mm3 (3.60-5.2); RDW 12.1 % (11.6-15.6); WHITE BLOOD COUNT 7.9 K/mm3 (4.0-10.8)
[2017-06-22 08:49] LABS: ALBUMIN 2.5 g/dl (3.5-5.0); ALK PHOS 106 U/L (32-92); ANION GAP 5 (8-16); BILIRUBIN,TOTAL 0.4 mg/dl (0.2-1.0); BLOOD UREA NITROGEN 6 mg/dl (7-18); CALCIUM 8.2 mg/dl (8.4-10.2); CHLORIDE 110 mmol/L (98-107); CO2 20 mmol/L (22-28); GLUCOSE,RANDOM 92 mg/dl (74-106); MAGNESIUM 1.6 mg/dL (1.8-2.4); POTASSIUM 3.7 mmol/L (3.5-5.1); SGOT/AST 19 U/L (10-42); SGPT/ALT 25 U/L (10-40); SODIUM 135 mmol/L (136-145); TOT PROT 5.8 g/dl (6.4-8.3)
[2017-06-22 09:06] LABS: CREATININE < 0.8 mg/dl (0.6-1.3)
[2017-06-22] MEDS: FAMOTIDINE 20 MG TABLET PO SCH (10:16)
[2017-06-22] MEDS: ENOXAPARIN NA (PORCINE) 40 MG/0.4 ML DISP.SYRIN SQ SCH (10:17)
--- NOTE | 2017-06-22 11:06 | PN ---
Progress Note, Physician Chief Complaint: ID Beverly Feels well - Current Medication List Current Medications: Active Medications Acetaminophen (Tylenol -) 650 mg PO Q6H PRN PRN Reason: PAIN OR FEVER Last Admin: 06/22/17 06:35 Dose: 650 mg Enoxaparin Sodium (Lovenox -) 40 mg SQ DAILY [facility] Famotidine (Pepcid -) 20 mg PO BID [facility] Last Admin: 06/21/17 22:10 Dose: Not Given Piperacillin Sod/Tazobactam Sod (Zosyn 3.375gm Ivpb (Pre-Docked)) 3.375 gm in 50 mls @ 100 mls/hr IVPB Q8H [facility] PRN Reason: Protocol Last Admin: 06/22/17 06:23 Dose: 100 mls/hr Dextrose/Sodium Chloride (Dextrose 5%-Normal Saline+20 Meq Kcl -) 20 meq in 1, 000 mls @ 75 mls/hr IV ASDIR [facility] Last Admin: 06/21/17 22:53 Dose: 75 mls/hr Ondansetron HCl (Zofran -) 4 mg PO TID PRN PRN Reason: NAUSEA AND/OR VOMITING Oxycodone HCl (Roxicodone -) 5 mg PO Q6H PRN PRN Reason: PAIN LEVEL 7 - 10 Last Admin: 06/21/17 22:17 Dose: 5 mg - Objective Vital Signs: Vital Signs Temperature 99.1 F 06/22/17 06:13 Pulse Rate 89 06/22/17 06:13 Respiratory Rate 18 06/22/17 06:13 Blood Pressure 107/61 06/22/17 06:13 O2 Sat by Pulse Oximetry (%) 94 L 06/22/17 06:13 Neck: Yes: WNL, Supple Cardiovascular: Yes: Regular Rate and Rhythm, S1, S2 Respiratory: Yes: WNL, Regular, CTA Bilaterally Gastrointestinal: Yes: WNL, Normal Bowel Sounds, Soft Edema: No Labs: CBC, BMP 06/22/17 06:30 06/22/17 06:30 Assessment/Plan Microbiology 06/18/17 19:18 Blood - Peripheral Venous Blood Culture - Final Escherichia Coli 06/18/17 19:18 Blood - Peripheral Venous Blood Culture - Final Escherichia Coli 06/18/17 18:33 Urine - Urine Clean Catch Urine Culture - Final Escherichia Coli Laboratory Tests 06/22/17 06/22/17 06:30 06:30 WBC 7.9 D Hgb 9.7 L Hct 28.1 L Plt Count 269 Creatinine < 0.8 Assessment LEft ureteral calculus E COli bacteremia stent placment Plan Switch to Levofloxacin and treat 500mg daily for total of 14 days antibiotics ( 10 days po) Victor M MCCORMICK
--- NOTE | 2017-06-22 11:33 | DS ---
Physical Exam: SUBJECTIVE: Patient seen and examined OBJECTIVE: Vital Signs Period Temp Pulse Resp BP Sys/Aguilar Pulse Ox Last 24 Hr 98.2 F-99.1 F 89-98 16-18 106-115/61-76 94-95 PHYSICAL EXAM GENERAL: The patient is awake, alert, and fully oriented, in no acute distress. HEAD: Normal with no signs of trauma. EYES: PERRL, extraocular movements intact, sclera anicteric, conjunctiva clear. ENT: Ears normal, nares patent, oropharynx clear without exudates, moist mucous membranes. NECK: Trachea midline, full range of motion, supple. LUNGS: Breath sounds equal, clear to auscultation bilaterally, no wheezes, no crackles, no accessory muscle use. HEART: Regular rate and rhythm, S1, S2 without murmur, rub or gallop. ABDOMEN: Soft, nontender, nondistended, normoactive bowel sounds, no guarding, no rebound, no hepatosplenomegaly, no masses. EXTREMITIES: 2+ pulses, warm, well-perfused, no edema. NEUROLOGICAL: Cranial nerves II through XII grossly intact. Normal speech, gait not observed. PSYCH: Normal mood, normal affect. SKIN: Warm, dry, normal turgor, no rashes or lesions noted. LABS Laboratory Results - last 24 hr 06/22/17 06/22/17 06:30 06:30 WBC 7.9 D RBC 3.21 L Hgb 9.7 L Hct 28.1 L MCV 87.5 MCH 30.2 MCHC 34.5 RDW 12.1 Plt Count 269 MPV 9.3 Sodium 135 L Potassium 3.7 Chloride 110 H Carbon Dioxide 20 L Anion Gap 5 L BUN 6 L D Creatinine < 0.8 Creat Clearance w eGFR > 60 Random Glucose 92 Calcium 8.2 L Magnesium 1.6 L Total Bilirubin 0.4 D AST 19 D ALT 25 D Alkaline Phosphatase 106 H D Total Protein 5.8 L Albumin 2.5 L HOSPITAL COURSE: Date of Admission:06/18/17 Date of Discharge: 06/22/17 Minutes to complete discharge: 35 Discharge Summary Reason For Visit: UTI/CALCULUS LEFT KIDNEY Current Active Problems DVT prophylaxis (Acute) Kidney stone on left side (Acute) Pyelonephritis (Acute) UTI (urinary tract infection) (Acute) Condition: Improved - Instructions Diet, Activity, Other Instructions: A prescription has been sent to your pharmacy for levofloxacin. Take this medication as directed. Do not engage in any impact exercise or contact sports while on this medication. It is important you follow up with Dr. Pollack. Return to the emergency department for any new or worsening symptoms. Referrals: Porter Pollack MD [Staff Physician] - Disposition: HOME - Home Medications Comprehensive Discharge Medication List: Ambulatory Orders levoFLOXacin [Levaquin -] 500 mg PO DAILY@0600 #10 tablet 06/22/17 This patient is new to me today: No Emergency Visit: Yes ED Registration Date: 06/18/17 Care time: The patient presented to the Emergency Department on the above date and was hospitalized for further evaluation of their emergent condition. Critical Care patient: No - Discharge Referral Referred to [facility] No
== END 2017-06-22 12:27 | disposition home or self-care (01) | DRG 720 ==
LOC: FER 17:59 → FM/S 21:51
PROVIDERS: ADMIT Internal Medicine; ATTEND Nurse Practitioner Acute Care
PROC: 0T778DZ Dilation of Left Ureter with Intraluminal Device, Via Natural or Artificial Opening Endoscopic (ICD-10-PCS; principal; 2017-06-19 11:30)
DX: A41.50 Gram-negative sepsis, unspecified (principal); N13.6 Pyonephrosis; N13.2 Hydronephrosis with renal and ureteral calculous obstruction; E87.1 Hypo-osmolality and hyponatremia; E86.0 Dehydration; N12 Tubulo-interstitial nephritis, not specified as acute or chronic; N39.0 Urinary tract infection, site not specified; B96.20 Unspecified Escherichia coli [E. coli] as the cause of diseases classified elsewhere
CPT/HCPCS: 36415; 74176-TC; 80048; 80053; 81003; 81015; 83605; 83735; 84100; 84703; 85025; 85027; 87040; 87086; 87186; 94760; 99284-25

== ENCOUNTER 2017-07-04 13:37 | Day surgery (SDC) | payer OTHER ==
[2017-07-02 15:12] VITALS: BMI 24.8
[2017-07-04] MEDS ORDERED: ACETAMINOPHEN 1000 MG/100 ML VIAL (NON FORMULARY) IVPB ONE (14:29)
--- NOTE | 2017-07-04 14:29 | HP ---
History & Physical Update - History History: No Change - Physical Physical: No Change - Assessment Assessment: No Change - Plan Plan: No Change
[2017-07-04] MEDS ORDERED: IBUPROFEN 800 MG/8 ML IJ IVPB SCH (14:30)
[2017-07-04] MEDS ORDERED: DEXTROSE 5%-0.45% SALINE 1,000 ML IV SCH (14:30)
[2017-07-04] MEDS ORDERED: PROMETHAZINE HCL 25 MG/1 ML VIAL IVPUSH PRN (14:33)
[2017-07-04] MEDS ORDERED: ONDANSETRON 4 MG/2 ML VIAL IVPUSH PRN (14:33)
[2017-07-04] MEDS ORDERED: oxyCODONE HCL 5 MG TABLET PO PRN (14:33)
[2017-07-04] MEDS ORDERED: LACTATED RINGERS SOLUTION 1,000 ML IV SCH (14:45)
[2017-07-04] MEDS ORDERED: MIDAZOLAM HCL 2 MG/2 ML SINGLE DOSE VIAL ONE (14:50)
[2017-07-04] MEDS ORDERED: PROPOFOL 20 ML ONE (14:54)
[2017-07-04] MEDS ORDERED: ceFAZolin SODIUM 1 GM VIAL IVPB ONE (14:59)
[2017-07-04] MEDS ORDERED: IBUPROFEN 800 MG/8 ML IJ IVPB ONE (15:39)
[2017-07-04 16:16] VITALS: TEMP 97.9
[2017-07-04 17:44] VITALS: BP 116/75; PULSE 86
--- NOTE | 2017-07-05 10:25 | OP ---
DATE OF OPERATION: 07/04/2017 PREOPERATIVE DIAGNOSIS: Left ureteral calculus. POSTOPERATIVE DIAGNOSIS: Left ureteral calculus. PROCEDURE: Cystoscopy, left ureteroscopic laser lithotripsy, and stent removal. ANESTHESIA: General, Jennifer Porras MD. FINDINGS: A 4-mm stone in the mid-ureter. SPECIMENS: None. DRAINS: None. ESTIMATED BLOOD LOSS: None. SURGEON: Porter Pollack MD PREOPERATIVE INDICATIONS: The patient is a 26-year-old female who was admitted 2 weeks ago with obstructing and infected stone on the left side. She had a stent placed at that time. She was treated with antibiotics. She now comes for lithotripsy. DESCRIPTION OF OPERATION: Patient was brought to the OR, placed on the table in the supine position, given general anesthesia and IV antibiotics, and placed in the modified lithotomy position. The groin was prepped and draped sterilely. Cystoscopy was performed. The bladder appeared to be unremarkable save a stent converging from the left ureteral orifice. This was pulled out through the urethral meatus, and a wire was passed up into the left kidney under fluoroscopic guidance. Ureteroscope was passed easily into the distal ureter and up to the area of the stone. Using the holmium laser fiber, the stone was broken up into small, passable fragments and flushed out. No other stone was seen along the course of the ureter. Scope was removed. The wire was removed. The bladder was emptied. The patient was woken up. Deborah [id number]
--- NOTE | 2017-07-08 08:30 | PATH ---
Surgical Pathology Report Patient Name: TOBIAS BEASLEY [facility]. Rec. #: [id number] /Age/Gender: 1990 (Age: 26) / F Account: [id number] Location: [facility] Taken: 07/04/2017 Received: 07/07/2017 Reported: 07/08/2017 Physicians: Porter Pollack M.D. Specimen(s) Received LEFT URETERAL STENT Clinical History Left ureteral stone Final Diagnosis REGISTERED NURSE BONE MARROW TRANSPLANT, LEFT URETER, REMOVAL: URETERAL STENT (gross only). Electronically Signed Johann Jack M.D. Gross Description Received fresh labeled "left ureteral stent," is a 33 cm in length blue-green, coiled portion of tubing, consistent with a ureteral stent. No soft tissue is present. No sections are submitted, gross only. /07/07/2017 saudi/07/07/2017
== END 2017-07-04 17:20 | disposition home or self-care (01) ==
LOC: JASU-SURG 13:37
PROVIDERS: ATTEND Urology
PROC: 0TC78ZZ Extirpation of Matter from Left Ureter, Via Natural or Artificial Opening Endoscopic (ICD-10-PCS; principal; 2017-07-04 15:00)
DX: N20.1 Calculus of ureter (principal)
CPT/HCPCS: 76000-TC-FY; 84703; 88300-TC